=== PATIENT | male | born 1990 | race Caucasian/White ===

== ENCOUNTER 2016-10-16 10:14 | Emergency (ER) | payer OTHER ==
[2016-10-16] MEDS ORDERED: LIDOCAINE 1% INJ-PF (10 MG/ML) 30 ML SDV INJ ONE (10:33)
[2016-10-16] MEDS ORDERED: DIPH/PERTUSS(ACELL)/TETANUS VAC/PF 0.5 ML SYR (>=10YO) IM ONE (10:39)
[2016-10-16] MEDS ORDERED: AMOXICILLIN TRIHYDRATE 500 MG CAPSULE PO ONE (10:44)
--- NOTE | 2016-10-16 11:15 | ER Document Report ---
ED Oral Problem - General Chief Complaint: Laceration Stated Complaint: WORK INJURY/FACE/LIP LACERATION Time Seen by Provider: 10/16/16 10:25 Mode of Arrival: Ambulatory Information source: Patient Notes: Patient states that he was unloading at [employer] and was accidentally struck in the face with 1 of the pieces of metal. Patient complains of dental injury, lip laceration and facial laceration. Patient denies any loss of consciousness , nausea or vomiting. TRAVEL OUTSIDE OF THE [place] IN LAST 30 DAYS: No - HPI Patient complains to provider of: Other - facial injury Onset: Just prior to arrival Onset: Sudden Quality of pain: Achy Pain Level: 3 Associated symptoms: Other - facial lac Similar symptoms previously: No Recently seen / treated by doctor/dentist: No Past Medical History - General Information source: Patient - Social History Smoking Status: Current Every Day Smoker Frequency of alcohol use: Occasional Drug Abuse: None Occupation: [employer] Family History: Reviewed & Not Pertinent Patient has suicidal ideation: No Patient has homicidal ideation: No - Medical History Medical History: Negative Renal/ Medical History: Denies: Hx Peritoneal Dialysis Surgical Hx: Negative - Immunizations Hx Diphtheria, Pertussis, Tetanus Vaccination: No - pt uncertain Review of Systems - Review of Systems Constitutional: No symptoms reported EENT: Other - lip, dental injury Cardiovascular: No symptoms reported Respiratory: No symptoms reported. denies: Cough, Short of breath Gastrointestinal: No symptoms reported. denies: Nausea, Vomiting Genitourinary: No symptoms reported Male Genitourinary: No symptoms reported Musculoskeletal: No symptoms reported. denies: Neck pain Skin: Other - lac Hematologic/Lymphatic: No symptoms reported Neurological/Psychological: No symptoms reported. denies: Confusion, Lost consciousness, Headaches Physical Exam - Vital signs Vitals: Temp Pulse Resp BP Pulse Ox 99.1 F 85 15 145/98 H 97 10/16/16 10:15 10/16/16 10:15 10/16/16 10:15 10/16/16 10:15 10/16/16 10:15 - General General appearance: Appears well, Alert In distress: None - HEENT Head: Normocephalic, Open wounds - lac to right lower lip Eyes: Normal Extraocular movements intact: Yes Pupils: PERRL Nasal: Normal Mouth/Lips: Dental fracture Teeth diagram: 1 - dental fracture 2 - dental fracture Neck: Normal, Supple - Respiratory Respiratory status: No respiratory distress Breath sounds: Normal - Cardiovascular Rhythm: Regular Heart sounds: S1 appreciated, S2 appreciated - Extremities General upper extremity: Normal inspection, Normal ROM General lower extremity: Normal inspection, Normal ROM - Neurological Neuro grossly intact: Yes Cognition: Normal [place] Coma Scale Eye Opening: Spontaneous [place] Coma Scale Verbal: Oriented [place] Coma Scale Motor: Obeys Commands Boyd Coma Scale Total: 15 - Psychological Associated symptoms: Normal affect, Normal mood - Skin Skin Temperature: Warm Skin Moisture: Dry Skin Color: Normal Skin irregularity: Laceration - right mental lac 2 cm, just inferior of lip Course - Re-evaluation Re-evalutation: 10/16/16 11:52 The patient has been informed that they may have pre-hypertension or hypertension based on a blood pressure reading in the emergency department. I recommend that patient call the primary care provider listed on their discharge instructions or a physician of their choice by this week to arrange follow-up for further evaluation of possible pre-hypertension her hypertension. - Vital Signs Vital signs: Temp Pulse Resp BP Pulse Ox 99.1 F 71 16 138/96 H 98 10/16/16 10:18 10/16/16 12:20 10/16/16 12:20 10/16/16 12:20 10/16/16 12:20 - Diagnostic Test Radiology reviewed: Reports reviewed Procedures - Laceration/Wound Repair Right Face Wound length (cm): 2 Wound's Depth, Shape: Irregular Laceration pre-procedure: Other - chlorhexadine Anesthetic type: Other - mental nerve block Volume Anesthetic (mLs): 1 Wound explored: Clean Wound Repaired With: Sutures Suture Size/Type: 6:0, Nylon Number of Sutures: 5 Layer Closure?: No Post-procedure NV exam normal: Yes Complications: No Adult Head Front/Back picture: 1 - 2 cm lac Right Head Wound length (cm): 1 Wound's Depth, Shape: Irregular Anesthetic type: Other - mental nerve block Wound explored: Clean Irrigated w/ Saline (mLs): 100 Wound Repaired With: Sutures Suture Size/Type: 5:0, Vicryl Number of Sutures: 1 Layer Closure?: No Post-procedure NV exam normal: Yes Complications: No Mouth/Teeth picture: 1 - 1 cm irreg lac inside r lower lip Discharge - Discharge Clinical Impression: Facial injury Qualifiers: Encounter type: initial encounter Qualified Code(s): S09.93XA - Unspecified injury of face, initial encounter Lip laceration Qualifiers: Encounter type: initial encounter Qualified Code(s): S01.511A - Laceration without foreign body of lip, initial encounter Face lacerations Qualifiers: Encounter type: initial encounter Qualified Code(s): S01.81XA - Laceration without foreign body of other part of head, initial encounter Tooth fracture Qualifiers: Encounter type: initial encounter Fracture type: open Qualified Code(s): S02.5XXB - Fracture of tooth (traumatic), initial encounter for open fracture Condition: Stable Disposition: HOME, SELF-CARE Instructions: Oral Narcotic Medication ([facility]), Tetanus Immunization Given ([facility]) , Prophylactic Antibiotic ([facility]), Facial Laceration ([facility]), Oral Laceration, Sutured ([facility]) Additional Instructions: Return immediately for any new or worsening symptoms Followup with your primary care provider, call tomorrow to make a followup appointment Suture removal in 5 days Soft diet, rinse mouth out after meals. Follow-up with a dentist Follow-up with a primary care provider to recheck your blood pressure next week Prescriptions: Amoxicillin 500 mg PO TID #21 tablet Oxycodone HCl/Acetaminophen [Percocet 5-325 mg Tablet] 1 tab PO ASDIR PRN #15 tablet PRN Reason: Forms: Elevated Blood Pressure, Return to Work Referrals: [facility] [Provider Group] - Follow up as needed [facility] [Provider Group] - Follow up as needed
--- NOTE | 2016-10-16 11:15 | RADIOLOGY REPORT (SQ) ---
EXAM DESCRIPTION: CT FACIAL AREA WITHOUT COMPLETED DATE/TIME: 10/16/2016 10:51 am REASON FOR STUDY: face struck with rebar, r facial/dental injury COMPARISON: None. TECHNIQUE: Noncontrasted images through the facial bones and orbits windowed for bone and soft tissu e. Additional coronal and sagittal reconstructed images reviewed. All images stored on PACS. All CT scanners at this facility use dose modulation, iterative reconstruction, and/or weight based d osing when appropriate to reduce radiation dose to as low as reasonably achievable (ALARA). [facility]: Dose Right [facility]: CareDose [facility]: Dose Right [facility]: Teradose 4D [facility]: Light [employer] Optics RADIATION DOSE: 30.40 mGy. LIMITATIONS: None. FINDINGS: FACIAL BONES: No fracture or bone lesion. ORBITS: Intact. No fracture. Symmetric intact globes and retroorbital soft tissues. PARANASAL SINUSES: No mass or fluid. Minimal mucoperiosteal thickening in the left maxillary sinus. No nasal polyps. Maxillary sinus outlets are patent. SOFT TISSUES: No mass or edema. INFERIOR BRAIN: Limited view. No acute findings. OTHER: No other significant finding. IMPRESSION: 1. There is no acute osseous abnormality. 2. There is minimal left maxillary sinus disease. TECHNICAL DOCUMENTATION: JOB ID: [id number] Quality ID # [id number]: Final reports with documentation of one or more dose reduction techniques (e.g., Au tomated exposure control, adjustment of the mA and/or kV according to patient size, use of iterative reconstruction technique) 2010 [employer]- All Rights Reserved
[2016-10-16 12:25] VITALS: BP 138/96
== END 2016-10-16 12:22 | disposition home or self-care (01) ==
LOC: ER 10:14
PROC: 0CQ1XZZ Repair Lower Lip, External Approach (ICD-10-PCS; principal; 2016-10-16)
DX: S02.5XXA Fracture of tooth (traumatic), initial encounter for closed fracture (principal); S01.511A Laceration without foreign body of lip, initial encounter; W22.8XXA Striking against or struck by other objects, initial encounter; Y93.89 Activity, other specified; Y92.59 Other trade areas as the place of occurrence of the external cause; Y99.0 Civilian activity done for income or pay; F17.200 Nicotine dependence, unspecified, uncomplicated
CPT/HCPCS: 99283; 90471; 70486; 90715; 12011; J3490

== ENCOUNTER 2019-12-17 16:54 | Emergency (ER) | payer BC, OTHER ==
[2019-12-17 17:01] VITALS: BP 144/93
--- NOTE | 2019-12-17 17:26 | ER Document Report ---
HPI - HPI Patient complains to provider of: Left upper extremity pain Time Seen by Provider: 12/17/19 17:16 Onset: Last week Onset/Duration: Waxing and waning Quality of pain: Burning Pain Level: 1 Context: Patient presents complaining of pain to the left upper arm with occasional pain to the left forearm. Patient states she he has a tingling sensation to the left thumb. Patient denies any injury or fever. Patient denies any history of IV drug abuse. Associated Symptoms: Other Exacerbated by: Denies Relieved by: Denies Similar symptoms previously: No Recently seen / treated by doctor: No - ROS ROS below otherwise negative: Yes Systems Reviewed and Negative: Yes All other systems reviewed and negative - NEURO Neurology: DENIES: Weakness - MUSCULOSKELETAL Musculoskeletal: REPORTS: Extremity pain - LUE - DERM Skin Color: Normal Skin Problems: None Past Medical History - General Information source: Patient - Social History Smoking Status: Current Every Day Smoker Frequency of alcohol use: None Drug Abuse: None Occupation: [employer] Lives with: Family Family History: Reviewed & Not Pertinent Patient has homicidal ideation: No - Medical History Medical History: Negative Renal/ Medical History: Denies: Hx Peritoneal Dialysis Surgical Hx: Negative - Immunizations Hx Diphtheria, Pertussis, Tetanus Vaccination: No - pt uncertain Vertical Provider Document - CONSTITUTIONAL Agree With Documented VS: Yes Exam Limitations: No Limitations General Appearance: WD/WN, No Apparent Distress - INFECTION CONTROL TRAVEL OUTSIDE OF THE [place] IN LAST 30 DAYS: No - HEENT HEENT: Atraumatic, Normocephalic - NECK Neck: Normal Inspection, Supple. negative: Lymphadenopathy-Left, Lymphadenopathy-Right - RESPIRATORY Respiratory: Breath Sounds Normal, No Respiratory Distress - CARDIOVASCULAR Cardiovascular: Regular Rate, Regular Rhythm Pulses: Normal: Radial - BACK Back: Normal Inspection - MUSCULOSKELETAL/EXTREMETIES Musculoskeletal/Extremeties: MAEW, FROM, Tender - mild tenderness to LUE Notes: Normal strength and muscle tone to bilateral upper extremities, strength 5 out of 5 testing, no radian, medial or ulnar nerve deficit. Patient with mild tenderness to anterior aspect of left upper arm - NEURO Level of Consciousness: Awake, Alert, Appropriate Motor/Sensory: No Motor Deficit - DERM Integumentary: Warm, Dry, No Rash Course - Re-evaluation Re-evalutation: 12/17/19 18:11 No acute findings on patient's x-ray report. Patient with symptoms worrisome for a cervical radicular pattern to his pain and paresthesias symptoms. Patient encouraged to follow-up with her primary doctor or orthopedics for further evaluation. Discussed worsening signs or symptoms of patient should return immediately for. - Vital Signs Vital signs: Temp Pulse Resp BP Pulse Ox 98.3 F 97 18 144/93 H 100 12/17/19 16:59 12/17/19 16:59 12/17/19 16:59 12/17/19 16:59 12/17/19 16:59 - Diagnostic Test Radiology reviewed: Image reviewed, Reports reviewed Discharge - Discharge Clinical Impression: Thumb paresthesia, left, Left upper arm pain Condition: Stable Disposition: HOME, SELF-CARE Instructions: Radiculopathy ([facility]), Steroid Medication Additional Instructions: Return immediately for any new or worsening symptoms Followup with your primary care provider, call tomorrow to make a followup appointment Follow-up with a primary doctor or orthopedics for further evaluation, call tomorrow for an appointment Prescriptions: Prednisone [Deltasone 20 mg Tablet] 3 tab PO DAILY 5 Days #15 tablet [facility] [Provider Group] - Follow up as needed [facility] [Provider Group] - Follow up as needed [facility] [Provider Group] - Follow up as needed
--- NOTE | 2019-12-17 18:07 | RADIOLOGY REPORT (SQ) ---
EXAM DESCRIPTION: CERV SP 4 OR 5 VIEWS IMAGES COMPLETED DATE/TIME: 12/17/2019 5:53 pm REASON FOR STUDY: LUE pain, numbness COMPARISON: None. NUMBER OF VIEWS: Five views. TECHNIQUE: AP, lateral, obliques and odontoid radiographic images acquired of the cervical spine. LIMITATIONS: None. FINDINGS: MINERALIZATION: Normal. ALIGNMENT: Anatomic. VERTEBRAE: Vertebral bodies of normal height. DISCS: No significant osteophytes or sclerosis. Disc height maintained. FORAMINA: No osteophytes or foraminal narrowing. LATERAL AND POSTERIOR ELEMENTS: Facets, lateral masses and spinous processes without significant find ings. HARDWARE: None in the spine. SOFT TISSUES: No masses or calcifications. Lung apices clear. OTHER: No other significant finding. IMPRESSION: NO SIGNIFICANT RADIOGRAPHIC FINDING IN THE CERVICAL SPINE. TECHNICAL DOCUMENTATION: JOB ID: [id number] 2010 [employer]- All Rights Reserved Reading location - IP/workstation name: [email or web address]
== END 2019-12-17 18:35 | disposition home or self-care (01) ==
LOC: ER 16:54
DX: M79.602 Pain in left arm (principal); R20.2 Paresthesia of skin; F17.200 Nicotine dependence, unspecified, uncomplicated
CPT/HCPCS: 72050; 99283